=== PATIENT | female | born 2000 | race Caucasian/White ===

== ENCOUNTER 2020-11-04 14:25 | Outpatient (CLI) | payer BC ==
[~2020-11-04] VITALS: Ht 160 cm; Wt 94.5 kg
[2020-11-04] MEDS ORDERED: BETAMETHASONE 6 MG/ML, 5ML IM ONE (14:30)
[2020-11-04 14:46] VITALS: BP 135/83
[2020-11-04 16:07] LABS: MICROSCOPIC INDICATED
[2020-11-05] MEDS ORDERED: NIFE10CA PO (16:32)
== END 2020-11-04 15:50 | disposition home or self-care (01) ==
LOC: LDOP 14:25
PROVIDERS: ATTEND Obstetrics & Gynecology
DX: O60.00 Preterm labor without delivery, unspecified trimester (principal)
CPT/HCPCS: 59025; 81001; 87086

== ENCOUNTER 2020-11-05 13:27 | Outpatient (CLI) | payer BC ==
[~2020-11-05] VITALS: Ht 160 cm; Wt 94.5 kg
[2020-11-05] MEDS ORDERED: TERBUTALINE 1 MG/ML, 1ML SQ ONE (14:00)
[2020-11-05] MEDS ORDERED: TERBUTALINE 1 MG/ML, 1ML ONE (14:06)
[2020-11-05] MEDS ORDERED: BETAMETHASONE 6 MG/ML, 5ML IM ONE (14:30)
[2020-11-05] MEDS ORDERED: PLEASE ENTER HEIGHT AND WEIGHT MC SCH (14:30)
[2020-11-05] MEDS ORDERED: ACETAMINOPHEN 325 MG TABLET ONE (15:48)
[2020-11-05] MEDS ORDERED: NIFE10CA PO (16:32)
== END 2020-11-05 16:48 | disposition home or self-care (01) ==
LOC: LDOP 13:27
PROVIDERS: ATTEND Obstetrics & Gynecology
DX: O60.03 Preterm labor without delivery, third trimester (principal); O26.893 Other specified pregnancy related conditions, third trimester; M54.9 Dorsalgia, unspecified; Z3A.32 32 weeks gestation of pregnancy
CPT/HCPCS: 59025; 96372; J0702; J3105

== ENCOUNTER 2020-11-28 16:59 | Outpatient (CLI) | payer BC ==
[~2020-11-28] VITALS: Ht 157.5 cm; Wt 96.3 kg
[~2020-11-28 16:59] MED LIST: NIFE10CA PO
[2020-11-28] MEDS ORDERED: LACTATED RINGERS 1,000 ML IV SCH (19:30)
[2020-11-28 20:30] LABS: MICROSCOPIC NOT IND
[2020-11-28] MEDS ORDERED: ACETAMINOPHEN 325 MG TABLET ONE (20:42)
[2020-11-28] MEDS ORDERED: ACETAMINOPHEN 325 MG TABLET PO PRN (21:00)
[2020-11-28] MEDS ORDERED: ZOLPIDEM 5MG TABLET PO SCH (21:30)
== END 2020-11-28 21:30 | disposition home or self-care (01) ==
LOC: LDOP 16:59
PROVIDERS: ATTEND Obstetrics & Gynecology
DX: O60.03 Preterm labor without delivery, third trimester (principal); Z3A.35 35 weeks gestation of pregnancy
CPT/HCPCS: 59025; 81003; 84112; 87086; 96360; 96361; J7120

== ENCOUNTER 2020-12-08 04:01 | Inpatient (IN) | payer BC ==
[~2020-12-08] VITALS: Ht 160 cm; Wt 96.0 kg
[2020-12-08] MEDS ORDERED: NEWBORN KIT ONE (04:06)
[2020-12-08] MEDS ORDERED: LIDOCAINE 1%, 20ML ONE ×2 (04:06→04:07)
[2020-12-08] MEDS ORDERED: MISOPROSTOL 200 MCG TABLET ONE (04:06)
[2020-12-08] MEDS ORDERED: OXYTOCIN 30U/ 0.9% NaCL 500ML 500 ML ONE (04:07)
[2020-12-08] MEDS ORDERED: AMPICILLIN 2 GM in SODIUM CHLORIDE 0.9% 100 ML IVPB STA (04:09)
[2020-12-08] MEDS ORDERED: TERBUTALINE 1 MG/ML, 1ML SQ PRN (04:30)
[2020-12-08] MEDS ORDERED: METOCLOPRAMIDE 5 MG/ML, 2ML IVPush PRN (04:30)
[2020-12-08] MEDS ORDERED: AMPICILLIN 1 GM in SODIUM CHLORIDE 0.9% 100 ML IVPB SCH (04:30)
[2020-12-08] MEDS ORDERED: SODIUM CITRATE/CITRIC ACID 30 ML UDC PO PRN (04:30)
[2020-12-08] MEDS ORDERED: D5%-LACTATED RINGERS 1,000 ML IV SCH (04:30)
[2020-12-08] MEDS ORDERED: CALCIUM CARBONATE 500 MG TAB.CHEW PO PRN (04:30)
[2020-12-08] MEDS ORDERED: FENTANYL PF 100 MCG/2ML IV PRN (04:30)
[2020-12-08] MEDS ORDERED: ONDANSETRON 2MG/ML, 2ML IVPush PRN (04:30)
[2020-12-08] MEDS: LACTATED RINGERS 1,000 ML IV SCH ×2 (04:30→07:18)
[2020-12-08] MEDS ORDERED: FENTANYL PF 100 MCG/2ML IVPush PRN (04:30)
[2020-12-08] MEDS ORDERED: TERBUTALINE 1 MG/ML, 1ML IVPush PRN (04:30)
[2020-12-08 04:45] VITALS: BP 142/82
[2020-12-08 04:49] LABS: BASOPHILS % (AUTO) 1 % (0-1); EOSINOPHILS % (AUTO) 0 % (1-7); LYMPHOCYTES % (AUTO) 15 % (22-44); MEAN CORPUSCULAR HEMOGLOBIN 25.8 pg (27.0-34.8); MEAN CORPUSCULAR HGB CONC 33.2 g/dL (32.4-35.8); MEAN PLATELET VOLUME 8.5 fL (7.4-10.4); MONOCYTES % (AUTO) 5 % (2-9); NEUTROPHILS % (AUTO) 79 % (42-75); PLATELET COUNT 374 x10^3/uL (130-400); RED BLOOD COUNT 4.51 x10^6/uL (3.82-5.3); RED CELL DISTRIBUTION WIDTH 15.7 % (9.6-15.2)
[2020-12-08] MEDS ORDERED: FENTANYL/BUPIV./NS/PF 250 ML EPIDCONT ONE (05:13)
[2020-12-08] MEDS ORDERED: BUPIVACAINE 0.25% ONE (05:34)
[2020-12-08] MEDS ORDERED: FENTANYL/BUPIV./NS/PF 250 ML EPIDCONT SCH (06:00)
[2020-12-08] MEDS ORDERED: EPHEDRINE 50 MG/ML, 1ML IVPush PRN (06:00)
[2020-12-08] MEDS ORDERED: LACTATED RINGERS 1,000 ML IVBOLUS PRN (06:00)
[2020-12-08] MEDS ORDERED: LACTATED RINGERS 1,000 ML IV SCH (06:00)
[2020-12-08] MEDS ORDERED: NALOXONE 0.4 MG/ML, 1ML IVPush PRN (06:00)
[2020-12-08] MEDS ORDERED: OXYcodone/APAP 5/325MG TABLET PO PRN (09:00)
[2020-12-08] MEDS ORDERED: OXYTOCIN 30U/ 0.9% NaCL 500ML 500 ML IV SCH (09:00)
[2020-12-08] MEDS ORDERED: ONDANSETRON 2MG/ML, 2ML IV PRN (09:00)
[2020-12-08] MEDS ORDERED: MISOPROSTOL 200 MCG TABLET PR PRN (09:00)
[2020-12-08] MEDS ORDERED: SIMETHICONE 80 MG CHEW TAB PO PRN (09:00)
[2020-12-08] MEDS ORDERED: ACETAMINOPHEN 325 MG TABLET PO PRN (09:00)
[2020-12-08] MEDS: PRENATAL VIT/IRON/FA 1 EACH TABLET PO SCH (09:00)
[2020-12-08] MEDS: IBUPROFEN 600 MG TABLET PO PRN ×3 (09:29→22:30)
[2020-12-08 12:00] VITALS: BP 130/84
[2020-12-08] MEDS: OXYcodone IR 5MG TABLET PO PRN ×2 (12:49→18:12)
[2020-12-08 15:38] VITALS: BP 129/76
[2020-12-08 16:51] LABS: BASOPHILS % (AUTO) 1 % (0-1); EOSINOPHILS % (AUTO) 0 % (1-7); LYMPHOCYTES % (AUTO) 12 % (22-44); MEAN CORPUSCULAR HEMOGLOBIN 26.2 pg (27.0-34.8); MEAN CORPUSCULAR HGB CONC 33.4 g/dL (32.4-35.8); MEAN PLATELET VOLUME 8.6 fL (7.4-10.4); MONOCYTES % (AUTO) 8 % (2-9); NEUTROPHILS % (AUTO) 80 % (42-75); PLATELET COUNT 306 x10^3/uL (130-400); RED BLOOD COUNT 3.61 x10^6/uL (3.82-5.3); RED CELL DISTRIBUTION WIDTH 15.4 % (9.6-15.2)
[2020-12-08 20:00] VITALS: BP 123/82
[2020-12-09 01:00] VITALS: BP 122/76
[2020-12-09] MEDS: OXYcodone IR 5MG TABLET PO PRN ×3 (01:52→18:31)
[2020-12-09 04:53] VITALS: BP 124/75
[2020-12-09 07:45] VITALS: BP 115/72
[2020-12-09] MEDS: DOCUSATE 100 MG CAPSULE PO PRN ×2 (08:02→21:33)
[2020-12-09] MEDS: PRENATAL VIT/IRON/FA 1 EACH TABLET PO SCH (08:04)
[2020-12-09] MEDS: IBUPROFEN 600 MG TABLET PO PRN ×3 (08:04→21:32)
[2020-12-09 18:24] VITALS: BP 125/77
[2020-12-09 20:00] VITALS: BP 122/79
[2020-12-10] MEDS: OXYcodone IR 5MG TABLET PO PRN ×2 (02:41→08:17)
[2020-12-10 08:15] VITALS: BP 133/86
[2020-12-10] MEDS: IBUPROFEN 600 MG TABLET PO PRN (08:17)
[2020-12-10] MEDS: PRENATAL VIT/IRON/FA 1 EACH TABLET PO SCH (08:17)
[2020-12-10] MEDS ORDERED: PREN1TAB60 PO (09:56)
[2020-12-10] MEDS ORDERED: IBUP-1222 PO (09:56)
== END 2020-12-10 10:45 | disposition home or self-care (01) | DRG 807 ==
LOC: LDOP 04:01 → LDIP 04:15 → 2NW 12:44
PROVIDERS: ADMIT Obstetrics & Gynecology; ATTEND Obstetrics & Gynecology
PROC: 10E0XZZ Delivery of Products of Conception, External Approach (ICD-10-PCS; principal; 2020-12-08)
PROC: 3E0R3BZ Introduction of Anesthetic Agent into Spinal Canal, Percutaneous Approach (ICD-10-PCS; 2020-12-08)
PROC: 00HU33Z Insertion of Infusion Device into Spinal Canal, Percutaneous Approach (ICD-10-PCS; 2020-12-08)
DX: O99.824 Streptococcus B carrier state complicating childbirth (principal); Z37.0 Single live birth; Z20.822 Contact with and (suspected) exposure to COVID-19; Z3A.37 37 weeks gestation of pregnancy; F32.9 Major depressive disorder, single episode, unspecified; O99.344 Other mental disorders complicating childbirth
CPT/HCPCS: 36415; 85025; 86592; 86850; 86900; 87635; G0378; J0290; J2405; J3010; J7120